=== PATIENT | male | born 1955 | race Caucasian/White ===

== ENCOUNTER 2018-11-16 07:08 | Emergency (ER) | payer OTHER ==
[~2018-11-16] VITALS: Ht 172.7 cm; Wt 104.3 kg
[~2018-11-16 07:08] MED LIST: ACID REFLUX PILL; CIPROFLOXACIN500 M1 PO; FLAGYL500 MG PO; GERD MED; LISINOPRIL10 MG PO; NORCO 10-325 T1 EACH PO; PRILOSEC 20 MG20 MG PO; VICODIN PO
[2018-11-16 07:37] LABS: URINE BILIRUBIN NEGATIVE (Negative); URINE BLOOD NEGATIVE (Negative); URINE CLARITY CLEAR; URINE COLOR YELLOW; URINE GLUCOSE-RANDOM NEGATIVE (Negative); URINE KETONES NEGATIVE (Negative); URINE LEUKOCYTES-REFLEX NEGATIVE (Negative); URINE NITRITE-REFLEX NEGATIVE (Negative); URINE PROTEIN NEGATIVE (Negative); URINE SPECIFIC GRAVITY 1.025 (1.005-1.030); URINE UROBILINOGEN 0.2 E.U./dl (0.2-1.0)
[2018-11-16 07:41] LABS: HEMOGLOBIN 16.2 gm/dL (14.0-18.0)
[2018-11-16 07:43] LABS: ABSOLUTE BASOPHILS 0.1 thou/uL (0.0-0.2); ABSOLUTE EOSINOPHILS 0.1 thou/uL (0.0-0.7); ABSOLUTE LYMPHOCYTES 2.1 thou/uL (0.8-5.3); ABSOLUTE MONOCYTES 0.9 thou/uL (0.0-1.2); ABSOLUTE NEUTROPHILS 10.3 thou/uL (1.6-8.1); BASOPHILS 0.8 %; HEMATOCRIT 47.3 % (42.0-52.0); LYMPHOCYTES 15.4 %; MCH 31.2 pg (26.0-34.0); MCHC 34.3 g/dL (28.0-37.0); MONOCYTES 6.9 %; NUCLEATED RBCS 0 /100WBC; PLATELET COUNT* 296 thou/uL (150-400); POLYS 75.9 %; RBC 5.19 mil/uL (4.50-6.00); RDW-CV 13.3 % (10.5-14.5); WBC 13.6 thou/uL (4.0-11.0)
[2018-11-16 07:44] LABS: ANION GAP 9 mmol/L (7-16); BUN 11 mg/dL (7-18); CALCIUM 9.1 mg/dL (8.5-10.1); CHLORIDE 102 mmol/L (98-107); CO2 27 mmol/L (21-32); GLUCOSE 118 mg/dL (70-99); POTASSIUM 4.3 mmol/L (3.5-5.1); SODIUM 138 mmol/L (136-145)
[2018-11-16 07:54] LABS: ALKALINE PHOSPHATASE 94 U/L (46-116); LIPASE 107 U/L (73-393); SGOT 18 U/L (15-37); SGPT 38 U/L (30-65); TOTAL BILIRUBIN 0.3 mg/dL (<0.1-1.0); TOTAL PROTEIN 7.6 g/dL (6.4-8.2); TROPONIN-I LEVEL <0.06 ng/mL (<0.06)
[2018-11-16] MEDS ORDERED: ZOFRAN4 MG PO (09:19)
[2018-11-16] MEDS ORDERED: HYDROCODON-ACE1 EAC7 PO (09:19)
[2018-11-16] MEDS ORDERED: LEVAQUIN 750 M750 MG PO (09:19)
[2018-11-16] MEDS ORDERED: FLAGYL500 M1 PO (09:19)
[2018-11-16 10:19] VITALS: BP 111/66
--- NOTE | 2018-11-16 11:11 | EKG ---
[place] [address] ELECTROCARDIOGRAM REPORT Name: YAIREJ Kwasi [id number] Admission: 11/16/18 Attend Phys: Discharge: 11/16/18 Date of : 55 Report #: [id number] THIS REPORT FOR: //name// [facility] ED Test Date: 2018-11-16 Test Time: 07:51:45 Pat Name: EJ MAZARIEGOS Department: Room: Gender: M Bonding Agent: : [id number] Requested By: Clayton Farmer Order Number: [id number] MD: Glenn Linda Measurements Intervals [place] Rate: 84 P: 27 WI: 171 QRS: -19 QRSD: 82 T: 25 QT: 381 QTc: 451 Interpretive Statements Sinus rhythm Cannot rule out inferior infarct, old Borderline left axis deviation No previous ECG available for comparison Electronically Signed On 11-16-2018 11:10:49 CDT by Glenn Linda [email or web address] <ELECTRONICALLY SIGNED> By: Glenn Linda MD, FACC 11/16/18 1110 [id number] Glenn Linda MD, FACC /EPI
== END 2018-11-16 10:20 | disposition home or self-care (01) ==
LOC: M.ERS 07:08
PROVIDERS: Emergency Medicine
DX: K57.32 Diverticulitis of large intestine without perforation or abscess without bleeding (principal); I10 Essential (primary) hypertension; F17.220 Nicotine dependence, chewing tobacco, uncomplicated; Z88.8 Allergy status to other drugs, medicaments and biological substances

== ENCOUNTER 2019-02-07 09:20 | Inpatient (IN) | payer OTHER ==
[~2019-02-07] VITALS: Ht 172.7 cm; Wt 99.3 kg
[~2019-02-07 09:20] MED LIST changes: +FLAGYL500 M1 PO; +HYDROCODON-ACE1 EAC7 PO; +LEVAQUIN 750 M750 MG PO; -PRILOSEC 20 MG20 MG PO; +PRILOSEC OTC20 MG PO; +ZOFRAN4 MG PO
[2019-02-07 09:27] VITALS: BP 132/88
[2019-02-07 10:25] LABS: ABSOLUTE BASOPHILS 0.1 thou/uL (0.0-0.2); ABSOLUTE EOSINOPHILS 0.1 thou/uL (0.0-0.7); ABSOLUTE LYMPHOCYTES 1.9 thou/uL (0.8-5.3); ABSOLUTE MONOCYTES 1.2 thou/uL (0.0-1.2); ABSOLUTE NEUTROPHILS 6.8 thou/uL (1.6-8.1); BASOPHILS 0.5 %; EOSINOPHILS 0.8 %; HEMATOCRIT 44.6 % (42.0-52.0); HEMOGLOBIN 15.5 gm/dL (14.0-18.0); LYMPHOCYTES 18.8 %; MCH 31.4 pg (26.0-34.0); MCHC 34.8 g/dL (28.0-37.0); MCV 90.5 fL (80.0-100.0); MONOCYTES 11.6 %; MPV 7.5 fl. (7.2-11.1); NUCLEATED RBCS 0 /100WBC; PLATELET COUNT* 273 thou/uL (150-400); POLYS 68.3 %; RBC 4.93 mil/uL (4.50-6.00); RDW-CV 13.6 % (10.5-14.5); WBC 9.9 thou/uL (4.0-11.0)
[2019-02-07 10:34] LABS: CALCIUM 8.7 mg/dL (8.5-10.1); POTASSIUM 3.8 mmol/L (3.5-5.1)
[2019-02-07 10:40] LABS: ALBUMIN 3.8 g/dL (3.4-5.0); TOTAL BILIRUBIN 0.3 mg/dL (<0.1-1.0); TOTAL PROTEIN 7.5 g/dL (6.4-8.2)
[2019-02-07 13:04] LABS: URINE BILIRUBIN NEGATIVE (Negative); URINE BLOOD NEGATIVE (Negative); URINE CLARITY CLEAR; URINE COLOR YELLOW; URINE GLUCOSE-RANDOM NEGATIVE (Negative); URINE KETONES NEGATIVE (Negative); URINE LEUKOCYTES-REFLEX NEGATIVE (Negative); URINE NITRITE-REFLEX NEGATIVE (Negative); URINE PROTEIN NEGATIVE (Negative); URINE UROBILINOGEN 0.2 E.U./dl (0.2-1.0)
[2019-02-07 15:44] VITALS: BP 124/79
[2019-02-07 15:59] VITALS: BP 144/91
--- NOTE | 2019-02-07 17:08 | NUR ---
pt remained alert and oriented. pt resting in bed. fall risk precautions in place. hourly rounding completed. will continue to monitor.
[2019-02-07 20:00] VITALS: BP 120/76
[2019-02-08 05:38] LABS: ABSOLUTE EOSINOPHILS 0.2 thou/uL (0.0-0.7); ABSOLUTE MONOCYTES 1.1 thou/uL (0.0-1.2); ABSOLUTE NEUTROPHILS 4.6 thou/uL (1.6-8.1); BASOPHILS 0.6 %; EOSINOPHILS 2.4 %; HEMATOCRIT 37.8 % (42.0-52.0); LYMPHOCYTES 24.8 %; MCH 31.4 pg (26.0-34.0); MCHC 34.7 g/dL (28.0-37.0); MCV 90.2 fL (80.0-100.0); MONOCYTES 14.3 %; MPV 7.7 fl. (7.2-11.1); NUCLEATED RBCS 0 /100WBC; PLATELET COUNT* 237 thou/uL (150-400); POLYS 57.9 %; RBC 4.19 mil/uL (4.50-6.00); RDW-CV 13.3 % (10.5-14.5); WBC 7.9 thou/uL (4.0-11.0)
[2019-02-08 05:42] LABS: HEMOGLOBIN 13.1 gm/dL (14.0-18.0)
[2019-02-08 05:50] LABS: ALBUMIN 2.9 g/dL (3.4-5.0); CALCIUM 7.5 mg/dL (8.5-10.1); POTASSIUM 3.7 mmol/L (3.5-5.1); TOTAL BILIRUBIN 0.5 mg/dL (<0.1-1.0); TOTAL PROTEIN 6.4 g/dL (6.4-8.2)
--- NOTE | 2019-02-08 06:22 | NUR ---
PATIENT SLEPT WELL DURING THIS SHIFT. PT UP TO BATHROOM WITH STEADY GAIT. PT C/O MINIMAL ABDOMINAL PAIN AND REFUSING PAIN MEDICATION. PT C/O HEADACHE THIS MORNING. PT TOLD NO TYLENOL AVAILABLE BUT ORDER WILL BE SENT BUT PT REFUSED. PT WITH FLUIDS/ANTIBIOTICS INFUSING IN RT AC. PT DENIES NEEDS AT THIS TIME. FREQUENTLY USED ITEMS AND CALL LIGHT WITHIN REACH. SIDERAILS UPX2. WILL CONTINUE TO MONITOR.
[2019-02-08 08:00] VITALS: BP 125/70
[2019-02-08 16:15] VITALS: BP 115/94
--- NOTE | 2019-02-08 18:19 | NUR ---
PATIENT NPO THIS AM, ADVANCED TO SOFT/FIBER DIET THIS AFTERNOON. TOLERATING WITHOUT DIFFICULTY. PRN TYLENOL GIVEN FOR [place]. UP AD MARIA ANTONIA. IVF INFUSING, SCHED ABX INFUSED ORDERED.
[2019-02-08 22:08] VITALS: BP 129/73
[2019-02-09 04:32] LABS: ABSOLUTE EOSINOPHILS 0.3 thou/uL (0.0-0.7); ABSOLUTE LYMPHOCYTES 2.4 thou/uL (0.8-5.3); ABSOLUTE NEUTROPHILS 3.3 thou/uL (1.6-8.1); BASOPHILS 0.6 %; HEMATOCRIT 38.5 % (42.0-52.0); HEMOGLOBIN 13.2 gm/dL (14.0-18.0); LYMPHOCYTES 34.1 %; MCH 31.1 pg (26.0-34.0); MCHC 34.4 g/dL (28.0-37.0); MCV 90.4 fL (80.0-100.0); MONOCYTES 14.1 %; MPV 7.8 fl. (7.2-11.1); NUCLEATED RBCS 0 /100WBC; PLATELET COUNT* 261 thou/uL (150-400); POLYS 47.2 %; RBC 4.26 mil/uL (4.50-6.00); RDW-CV 13.4 % (10.5-14.5); WBC 6.9 thou/uL (4.0-11.0)
[2019-02-09 05:06] LABS: ALBUMIN 2.9 g/dL (3.4-5.0); CREATININE 0.9 mg/dL (0.6-1.3); POTASSIUM 3.8 mmol/L (3.5-5.1); TOTAL BILIRUBIN 0.3 mg/dL (<0.1-1.0)
--- NOTE | 2019-02-09 06:58 | NUR ---
PATIENT SLEPT WELL DURING THIS SHIFT. PT UP TO BATHROOM WITH STEADY GAIT. FLUIDS/ANTIBIOTICS INFUSING PER DR ORDER. PT HAD NO STOOLS UNTIL AROUND 0200 AND HAS HAD 4-5 BROWN/RED BLOODY LOOSE STOOLS. DR KU NOTIFIED. ORDER RECEIVED FOR IV PROTONIX BID, NPO AND AM LABS. PT C/O ABD PAIN THIS MORNING AND RECEIVED FENTANYL 50MCG. PT DENIES NEEDS AT THIS TIME. WILL CONTINUE TO MONITOR.
[2019-02-09 07:30] VITALS: BP 127/83
[2019-02-09 16:26] LABS: HEMATOCRIT 38.3 % (42.0-52.0); HEMOGLOBIN 13.4 gm/dL (14.0-18.0)
--- NOTE | 2019-02-09 16:44 | NUR ---
PATIENT CONTINUES TO HAVE BLOODY STOOLS, NPO THIS AM/[facility] AWAITING GI. CALLED PLACED TO DR. HOFFMANN AND PATIENT TO HAVE CLEARS AND HGB DRAWN THIS EVENING. HGB 13.4, DR. HOFFMANN NOTIFIED AND OK FOR SOFT/FOBER DIET. IVF AND SCHED ABX INFUSING ORDERED. PATIENT UP AD MARIA ANTONIA WITHOUT DIFFICULTY.
[2019-02-09 17:38] VITALS: BP 149/84
[2019-02-10 04:04] LABS: ABSOLUTE EOSINOPHILS 0.3 thou/uL (0.0-0.7); ABSOLUTE LYMPHOCYTES 2.3 thou/uL (0.8-5.3); ABSOLUTE MONOCYTES 1.1 thou/uL (0.0-1.2); ABSOLUTE NEUTROPHILS 3.8 thou/uL (1.6-8.1); BASOPHILS 0.4 %; EOSINOPHILS 4.2 %; HEMATOCRIT 38.9 % (42.0-52.0); HEMOGLOBIN 13.3 gm/dL (14.0-18.0); LYMPHOCYTES 30.7 %; MCH 30.8 pg (26.0-34.0); MCHC 34.3 g/dL (28.0-37.0); MCV 89.9 fL (80.0-100.0); MONOCYTES 14.7 %; MPV 7.7 fl. (7.2-11.1); NUCLEATED RBCS 0 /100WBC; PLATELET COUNT* 289 thou/uL (150-400); RBC 4.32 mil/uL (4.50-6.00); RDW-CV 13.2 % (10.5-14.5); WBC 7.6 thou/uL (4.0-11.0)
[2019-02-10 04:56] LABS: ALBUMIN 3.2 g/dL (3.4-5.0); CREATININE 1.1 mg/dL (0.6-1.3); POTASSIUM 3.7 mmol/L (3.5-5.1); TOTAL BILIRUBIN 0.3 mg/dL (<0.1-1.0); TOTAL PROTEIN 6.5 g/dL (6.4-8.2)
--- NOTE | 2019-02-10 04:57 | NUR ---
PATENT SLEPT WELL DURING THIS SHIFT. PT WITH FLUIDS/ANTIBIOTICS INFUSING PER ORDER. PT WITH CONCERNS ABOUT GOING HOME WHILE CONTINUING TO HAVE BLOODY LOOSE STOOLS. PT DENIES PAIN DURING THIS SHIFT. PT UP AD MARIA ANTONIA TO BATHROOM. FREQUENTLY USED ITEMS AND CALL LIGHT WITHIN REACH. SIDERRAILS UPX2. WILL CONTINUE TO MONITOR.
[2019-02-10 09:00] VITALS: BP 139/93
[2019-02-10] MEDS ORDERED: AUGMENTIN 875-1 EACH PO (09:12)
[2019-02-10 09:44] VITALS: BP 149/84
--- NOTE | 2019-02-10 12:34 | NUR ---
PATIENT DISCHARGED TO HOME. DISCHARGE PAPER REVIEWED AND SIGNED. PRESCRIPTIONS AND INFORMATION SHEETS GIVEN. IV REMOVED. PATIENT DENIES ANY FURTHER NEEDS. PATIENT TAKEN AMBULATORY TO EXIT. LEFT WITH DAUGHTER.
--- NOTE | 2019-02-10 20:32 | CON ---
[address] [address] CONSULTATION Name: EJ MAZARIEGOS V Room: [address] M.R.#: [id number] Admission: 02/07/19 Attend Phys: Brian Kenny Discharge: 02/10/19 Date of : 55 Report #: [id number] THIS REPORT FOR: //name// CC: Gentry Frost DICTATED BY: Alejandra Pool [facility] DATE OF SERVICE: 02/08/2019 PRIMARY CARE PHYSICIAN: Gentry Hagen DO Please note at the time of this dictation, the patient was seen and physically examined by myself. REASON FOR CONSULTATION: Recurrent diverticulitis. HISTORY OF PRESENT ILLNESS: This is a pleasant 63-year-old male who was recently seen in [place] [facility] back in November for diverticulitis. He was treated with Flagyl and Levaquin and discharged home. He states during that time when he was taking the medicine, he had significant dizziness and he does not recall which medication he felt likely the cause that and he prefers not to have that again. He states he had been doing well. He underwent a colonoscopy with Dr. Sood on 12/27 and noting significant diverticular disease in the descending and sigmoid colon. Those areas were inked. He was referred out to Dr. Lillian Hernandez. At that time, the patient wanted to wait to hold off on having any surgical intervention at this time until he retired in a year and a half. However, since he has had another bout in a very short period of time, he is willing to go forth with this and will be contacting Dr. Hernandez when he is discharged. 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 Otherwise, he denies any nausea or vomiting. He did have a stool this morning with no blood noted. He states his abdominal discomfort has significantly improved and he is hungry. ALLERGIES: No known drug allergies. MEDICATIONS: From home include omeprazole and lisinopril. PAST MEDICAL HISTORY: Hypertension, diverticulosis with diverticulitis, second round [place] [address] CONSULTATION Name: EJ MAZARIEGOS V Room: [address]#: [id number] Admission: 02/07/19 Attend Phys: Brian Kenny Discharge: 02/10/19 Date of : 55 Report #: [id number] PAST SURGICAL HISTORY: Appendectomy. FAMILY HISTORY: Noncontributory. SOCIAL HISTORY: Denies any illegal drug use. He does chew tobacco regularly and alcohol socially on the weekends. REVIEW OF SYSTEMS: Twelve-point review of systems is essentially negative except what is mentioned in the HPI. PHYSICAL EXAMINATION: VITAL SIGNS: Temperature 36.8, pulse 72, respirations 16, blood pressure 125/70. HEART: Regular rate and rhythm. LUNGS: Clear. ABDOMEN: Soft, positive bowel sounds in all 4 quadrants with tenderness noted in the left lower quadrant. LABORATORY DATA: Hemoglobin 13.1, white count of 7.9, platelets 237. GFR 75. CT shows pulmonary nodule in the left upper lobe, diverticulosis noted with circumferential wall thickening in the lower descending and upper sigmoid colon with stranding noted with no abscess formation and similar to previous finding back in November. IMPRESSION: 1. Abdominal pain. 2. Hematochezia, resolved. 3. Recurrent diverticulitis. PLAN: 1. The patient will need to continue oral antibiotics when discharged and to avoid Flagyl and Levaquin since cause significant dizziness. 2. The patient will follow up with Dr. Lillian Hernandez, surgeon whom he will contact after discharge. 3. Low residue diet. 4. We will have dietary come in and talk to him to this and he will need to maintain this until he has surgery. Thank you for allowing us to participate in this patient's care. Please do not hesitate to call with any questions in [place] [address] CONSULTATION Name: EJ MAZARIEGOS V Room: [address]#: [id number] Admission: 02/07/19 Attend Phys: Brian Kenny Discharge: 02/10/19 Date of : 55 Report #: [id number] Agree with above assessment and plan by Alejandra Pool <ELECTRONICALLY SIGNED> By: Cj Fisher MD 02/10/19 [id number] Fisher MD /nt
== END 2019-02-10 12:35 | disposition home or self-care (01) | DRG 379 ==
LOC: M.ERS 09:20 → M.3W 12:17 → M.TBA-ER 12:17 → M.3W 12:17
PROVIDERS: Emergency Medicine; Internal Medicine Gastroenterology; ADMIT Internal Medicine
DX: K57.93 Diverticulitis of intestine, part unspecified, without perforation or abscess with bleeding (principal); I10 Essential (primary) hypertension; F17.220 Nicotine dependence, chewing tobacco, uncomplicated; E86.9 Volume depletion, unspecified; K21.9 Gastro-esophageal reflux disease without esophagitis; E66.9 Obesity, unspecified; Z68.33 Body mass index [BMI] 33.0-33.9, adult; Z23 Encounter for immunization; Z90.49 Acquired absence of other specified parts of digestive tract; Z79.899 Other long term (current) drug therapy